=== PATIENT | male | born 1950 | race Caucasian/White ===

== ENCOUNTER 2019-05-02 06:15 | Inpatient (IN) ==
[2019-05-02] MEDS ORDERED: *HR* Propofol 200 MG/20 ML VIAL IVP ONE (06:50)
[2019-05-02] MEDS ORDERED: *HR* FentaNYL (PF) 100 MCG/2 ML VIAL ONE ×3 (06:50→10:10)
[2019-05-02] MEDS ORDERED: *HR* Succinylcholine 200 MG/10 ML VIAL IVP ONE (06:54)
[2019-05-02] MEDS ORDERED: *HR* Rocuronium Bromide 50 MG/5 ML VIAL ONE (06:54)
[2019-05-02] MEDS ORDERED: Ondansetron 4 MG/2 ML VIAL ONE (06:54)
[2019-05-02] MEDS ORDERED: CeFAZolin Syr 3,000MG/30 ML 3,000 MG/30 ML SYRINGE IVPB ONE (06:54)
[2019-05-02] MEDS ORDERED: Lidocaine -MPF 2% 2 ML VIAL ONE (06:54)
[2019-05-02] MEDS ORDERED: MetroNIDAZOLE 500 MG/100 ML 500 MG/100 ML BAG IVPB ONE (06:55)
[2019-05-02] MEDS ORDERED: Ringers Solution, Lactated 1,000 ML IVC SCH (07:00)
[2019-05-02] MEDS ORDERED: Acetaminophen IV 1,000 MG/100 ML INFUS..BTL IVPB ONE (07:07)
[2019-05-02] MEDS ORDERED: *HR* Promethazine 25 MG/ML VIAL IVP PRN (07:19)
[2019-05-02] MEDS ORDERED: *HR* Meperidine 25 MG/ML SYRINGE IVP PRN (07:19)
[2019-05-02] MEDS ORDERED: Ondansetron 4 MG/2 ML VIAL IVP ONE (07:19)
[2019-05-02] MEDS ORDERED: *HR* Labetalol 20 MG/4 ML SYRINGE IVP ONE (09:02)
[2019-05-02] MEDS: *HR* FentaNYL (PF) 100 MCG/2 ML VIAL IVP PRN ×2 (11:13→11:28)
[2019-05-02] MEDS ORDERED: Naloxone 0.4 MG/ML INJ IVP PRN (12:25)
[2019-05-02] MEDS ORDERED: Ondansetron 4 MG/2 ML VIAL IVP PRN (12:25)
[2019-05-02] MEDS ORDERED: Ipratropium/Albuterol Neb 3 ML IH PRN (12:25)
[2019-05-02] MEDS: 0.9 % Sodium Chloride 1,000 ML IVC SCH (17:55)
[2019-05-02] MEDS: Gabapentin 300 MG CAPSULE PO SCH (17:55)
[2019-05-02] MEDS: *HR* OxyCODONE Immed Rel 5 MG TABLET PO PRN ×2 (17:56→22:57)
[2019-05-02] MEDS: Budesonide/Formoterol 160/4.5 1 PUFF INH IH SCH (22:26)
[2019-05-03] MEDS ORDERED: Acetaminophen IV 1,000 MG/100 ML INFUS..BTL IVPB ONE (07:07)
[2019-05-03] MEDS: Spironolactone 25 MG TABLET PO SCH (09:21)
[2019-05-03] MEDS: *HR* OxyCODONE Immed Rel 5 MG TABLET PO PRN ×3 (09:21→21:19)
[2019-05-03] MEDS: Valsartan 80 MG TABLET PO SCH (09:21)
[2019-05-03] MEDS: allopurinoL 100 MG TABLET PO SCH (09:22)
[2019-05-03] MEDS: Furosemide 40 MG TABLET PO SCH (09:22)
[2019-05-03] MEDS: D5% in 0.45% NACL w KCl 20 MEQ/1,000 ML MLS IVC SCH ×2 (09:24→21:20)
[2019-05-03 09:50] LABS: BUN/Creatinine Ratio 12 (6-26); Blood Urea Nitrogen 12 mg/dL (8-23); Calcium 8.7 mg/dL (8.6-10.3); Carbon Dioxide 33 mEq/L (23-29); Chloride 103 mEq/L (98-107); Glucose 133 mg/dL (70-105); Osmolality,Calculated 290 (280-300); Potassium 4.3 mEq/L (3.5-5.1); Sodium 139 mEq/L (136-145); eGFR For African Americans > 60 (> 60); eGFR For Non-African Americans > 60 (> 60)
[2019-05-03] MEDS: Budesonide/Formoterol 160/4.5 1 PUFF INH IH SCH ×2 (10:50→22:08)
[2019-05-03] MEDS: *HR* Heparin 5,000 UNIT/ML VIAL SQ SCH ×2 (11:56→18:29)
[2019-05-03] MEDS: 0.9 % Sodium Chloride 1,000 ML IVC SCH (17:25)
[2019-05-03] MEDS: Gabapentin 300 MG CAPSULE PO SCH (18:29)
[2019-05-04 02:57] LABS: BUN/Creatinine Ratio 14 (6-26); Blood Urea Nitrogen 13 mg/dL (8-23); Calcium 8.5 mg/dL (8.6-10.3); Carbon Dioxide 29 mEq/L (23-29); Chloride 103 mEq/L (98-107); Glucose 137 mg/dL (70-105); Osmolality,Calculated 288 (280-300); Potassium 3.7 mEq/L (3.5-5.1); Sodium 138 mEq/L (136-145); eGFR For African Americans > 60 (> 60); eGFR For Non-African Americans > 60 (> 60)
[2019-05-04] MEDS: *HR* Heparin 5,000 UNIT/ML VIAL SQ SCH ×2 (06:30→17:51)
[2019-05-04] MEDS: Budesonide/Formoterol 160/4.5 1 PUFF INH IH SCH ×2 (08:12→20:32)
[2019-05-04] MEDS: Spironolactone 25 MG TABLET PO SCH (11:11)
[2019-05-04] MEDS: Valsartan 80 MG TABLET PO SCH (11:11)
[2019-05-04] MEDS: allopurinoL 100 MG TABLET PO SCH (11:11)
[2019-05-04] MEDS: Furosemide 40 MG TABLET PO SCH (11:11)
[2019-05-04] MEDS: D5% in 0.45% NACL w KCl 20 MEQ/1,000 ML MLS IVC SCH (11:13)
[2019-05-04] MEDS: *HR* OxyCODONE Immed Rel 5 MG TABLET PO PRN ×2 (11:15→20:32)
[2019-05-04] MEDS: Gabapentin 300 MG CAPSULE PO SCH (17:51)
[2019-05-05] MEDS: D5% in 0.45% NACL w KCl 20 MEQ/1,000 ML MLS IVC SCH ×2 (00:59→12:57)
[2019-05-05] MEDS: *HR* Heparin 5,000 UNIT/ML VIAL SQ SCH ×2 (05:55→17:02)
[2019-05-05] MEDS: *HR* OxyCODONE Immed Rel 5 MG TABLET PO PRN ×3 (05:57→22:47)
[2019-05-05 07:12] LABS: Basophils # 0.1 K/mcL (0.0-0.2); Basophils % 0.7 %; Eosinophils # 0.2 K/mcL (0.0-0.6); Eosinophils % 2.1 %; Hematocrit 40.7 % (37.5-50.1); Hemoglobin 12.8 g/dL (12.9-16.9); Immature Granulocytes % 0.5 % (0-4); Lymphocytes # 1.7 K/mcL (0.6-4.6); Mean Corpuscular HGB Conc 31.4 g/dL (31.6-35.5); Mean Corpuscular Hemoglobin 31.1 pg (28.0-33.3); Mean Platelet Volume 9.7 fL (9.4-12.4); Monocytes # 0.8 K/mcL (0.0-1.3); Monocytes % 8.3 %; Neutrophils # 6.6 K/mcL (1.6-8.9); Platelet Count 206 K/mcL (140-400); Red Blood Count 4.11 M/mcL (4.19-5.50); Red Cell Distribution Width 13.9 % (11.5-14.5); Segmented Neutrophils % 70.4 %; White Blood Count 9.4 K/mcL (4.3-11.1)
[2019-05-05] MEDS: Budesonide/Formoterol 160/4.5 1 PUFF INH IH SCH ×2 (07:53→20:00)
[2019-05-05] MEDS: Valsartan 80 MG TABLET PO SCH (08:43)
[2019-05-05] MEDS: Spironolactone 25 MG TABLET PO SCH (08:43)
[2019-05-05] MEDS: Furosemide 40 MG TABLET PO SCH (08:43)
[2019-05-05] MEDS: allopurinoL 100 MG TABLET PO SCH (08:44)
[2019-05-05] MEDS: Gabapentin 300 MG CAPSULE PO SCH (17:02)
[2019-05-06] MEDS: D5% in 0.45% NACL w KCl 20 MEQ/1,000 ML MLS IVC SCH (01:11)
[2019-05-06] MEDS ORDERED: *HR* OxyCODONE/APAP 7.5/325 TABLET PO ONE (01:35)
[2019-05-06] MEDS: *HR* Heparin 5,000 UNIT/ML VIAL SQ SCH ×2 (05:27→18:16)
[2019-05-06] MEDS: Budesonide/Formoterol 160/4.5 1 PUFF INH IH SCH ×2 (07:27→20:47)
[2019-05-06] MEDS: Spironolactone 25 MG TABLET PO SCH (10:09)
[2019-05-06] MEDS: allopurinoL 100 MG TABLET PO SCH (10:10)
[2019-05-06] MEDS: Furosemide 40 MG TABLET PO SCH (10:10)
[2019-05-06] MEDS: Valsartan 80 MG TABLET PO SCH (10:10)
[2019-05-06] MEDS: *HR* OxyCODONE Immed Rel 5 MG TABLET PO PRN (16:17)
[2019-05-06] MEDS: Gabapentin 300 MG CAPSULE PO SCH (18:17)
[2019-05-07] MEDS: *HR* Heparin 5,000 UNIT/ML VIAL SQ SCH (05:26)
[2019-05-07 07:00] VITALS: BP 136/86
[2019-05-07] MEDS: Valsartan 80 MG TABLET PO SCH (07:48)
[2019-05-07] MEDS: allopurinoL 100 MG TABLET PO SCH (07:48)
[2019-05-07] MEDS: Furosemide 40 MG TABLET PO SCH (07:48)
[2019-05-07] MEDS: Spironolactone 25 MG TABLET PO SCH (07:48)
[2019-05-07] MEDS: Budesonide/Formoterol 160/4.5 1 PUFF INH IH SCH (07:56)
[2019-05-07] MEDS: *HR* OxyCODONE Immed Rel 5 MG TABLET PO PRN (09:25)
[2019-05-07] MEDS ORDERED: FLU Vac QV 19-20 (6Month+)/PF 0.5 ML SYRINGE IM ONE (09:31)
== END 2019-05-07 12:41 | disposition home or self-care (01) | DRG 330 ==
LOC: SAMDAY 06:15 → 3ANU 12:11
PROVIDERS: ADMIT Surgery; ATTEND Surgery